=== PATIENT | female | born 1965 | race Caucasian/White ===

== ENCOUNTER 2018-06-27 01:01 | Emergency (ER) | payer OTHER ==
[2018-06-27] MEDS: HYDROCODONE/APAP (5/325) TAB PO (02:09)
== END 2018-06-27 03:48 | disposition home or self-care (01) ==
LOC: FTE 01:01
DX: S09.90XA Unspecified injury of head, initial encounter (principal); S00.83XA Contusion of other part of head, initial encounter; S69.92XA Unspecified injury of left wrist, hand and finger(s), initial encounter; Y04.8XXA Assault by other bodily force, initial encounter
CPT/HCPCS: 29125; 70450; 70486; 73110-LT; 73130-LT; 99284-25